=== PATIENT | female | born 2000 | race Two or more races ===

== ENCOUNTER 2023-03-29 10:46 | Emergency (ER) | payer OTHER ==
[~2023-03-29] VITALS: Ht 154.9 cm; Wt 46.3 kg
[2023-03-29] MEDS ORDERED: PRENATAL + DHA1 EAC1 PO (10:57)
[2023-03-29 12:07] LABS: HEMATOCRIT 36.6 % (36.0-45.00); HEMOGLOBIN 12.8 g/dL (12.0-15.00); MEAN CELL VOLUME 86.6 fL (80.00-100.00); MEAN CORPUSCULAR HEMOGLOBIN 30.2 pg (27.00-32.0); MEAN CORPUSCULAR HGB CONC 34.9 g/dl (32.0-36.0); PLATELET COUNT 347 K/uL (150-450); RED BLOOD COUNT 4.22 M/uL (4.00-6.00); RED CELL DISTRIBUTION WIDTH 13.2 % (11.5-14.5)
[2023-03-29 12:09] LABS: PH,URINE 5.5 (5.0-8.0); URINE APPEARANCE Clear; URINE BILIRRUBIN Negative (NEGATIVE); URINE BLOOD Moderate; URINE COLOR Yellow; URINE GLUCOSE Negative (NEGATIVE); URINE LEUKOCYTE Negative; URINE NITRATE Negative; URINE PROTEIN Negative (NEGATIVE)
[2023-03-29 12:13] LABS: URINE BACTERIA 374.1 uL (0.0-1933); URINE EPITHELIAL CELLS 10.8 uL (0.0-38.8); URINE RBC 2.2 uL (0.0-20.8); URINE WBC 10.8 uL (0.0-23.2)
[2023-03-29 12:44] LABS: CALCIUM 9.8 mg/dL (8.5-10.1); CREATININE SERUM 0.46 mg/dL (0.55-1.02); GFR 173.18; POTASSIUM 3.56 mEq/L (3.5-5.1)
== END 2023-03-29 15:51 | disposition home or self-care (01) ==
LOC: ER 10:47
PROVIDERS: General Practice
DX: O20.8 Other hemorrhage in early pregnancy (principal); Z3A.11 11 weeks gestation of pregnancy

== ENCOUNTER 2023-04-08 08:07 | Outpatient (CLI) | payer OTHER ==
[~2023-04-08 08:07] MED LIST: PRENATAL + DHA1 EAC1 PO
== END 2023-04-08 08:09 | disposition home or self-care (01) ==
LOC: PRENATAL 08:07
PROVIDERS: ATTEND Obstetrics & Gynecology Maternal & Fetal Medicine
DX: O36.80X0 Pregnancy with inconclusive fetal viability, not applicable or unspecified (principal); Z36.82 Encounter for antenatal screening for nuchal translucency; Z36.9 Encounter for antenatal screening, unspecified; O99.891 Other specified diseases and conditions complicating pregnancy; Z3A.12 12 weeks gestation of pregnancy

== ENCOUNTER 2023-04-11 17:10 | Emergency (ER) | payer OTHER ==
[~2023-04-11] VITALS: Ht 154.9 cm; Wt 45.4 kg
[2023-04-11 19:58] LABS: HEMOGLOBIN 11.9 g/dL (12.0-15.00); MEAN CELL VOLUME 86.5 fL (80.00-100.00); MEAN CORPUSCULAR HEMOGLOBIN 30.2 pg (27.00-32.0); MEAN CORPUSCULAR HGB CONC 34.9 g/dl (32.0-36.0); PLATELET COUNT 266 K/uL (150-450); RED BLOOD COUNT 3.94 M/uL (4.00-6.00); RED CELL DISTRIBUTION WIDTH 13.7 % (11.5-14.5)
[2023-04-11 20:30] LABS: CALCIUM 9.6 mg/dL (8.5-10.1); CREATININE SERUM 0.54 mg/dL (0.55-1.02); GFR 143.93; POTASSIUM 3.33 mEq/L (3.5-5.1)
== END 2023-04-11 22:36 | disposition home or self-care (01) ==
LOC: ER 17:11
PROVIDERS: Emergency Medicine
DX: O98.511 Other viral diseases complicating pregnancy, first trimester (principal); B34.9 Viral infection, unspecified; Z3A.13 13 weeks gestation of pregnancy; Z20.822 Contact with and (suspected) exposure to COVID-19

== ENCOUNTER 2023-05-14 08:47 | Emergency (ER) | payer OTHER ==
[~2023-05-14] VITALS: Ht 154.9 cm; Wt 46.7 kg
[2023-05-14] MEDS ORDERED: 0.9 % SODIUM CHLORIDE 1,000 ML IV STA (10:04)
[2023-05-14] MEDS ORDERED: ONDANSETRON HCL 2 MG/ML VIAL IV ONE (10:15)
[2023-05-14] MEDS ORDERED: ACETAMINOPHEN 500 MG GEL..CAP PO ONE (10:30)
[2023-05-14 10:43] LABS: HEMATOCRIT 32.4 % (36.0-45.00); HEMOGLOBIN 11.6 g/dL (12.0-15.00); MEAN CELL VOLUME 88.7 fL (80.00-100.00); MEAN CORPUSCULAR HEMOGLOBIN 31.8 pg (27.00-32.0); MEAN CORPUSCULAR HGB CONC 35.8 g/dl (32.0-36.0); PLATELET COUNT 248 K/uL (150-450); RED BLOOD COUNT 3.65 M/uL (4.00-6.00); RED CELL DISTRIBUTION WIDTH 13.9 % (11.5-14.5)
[2023-05-14 11:25] LABS: CALCIUM 8.9 mg/dL (8.5-10.1); CREATININE SERUM 0.46 mg/dL (0.55-1.02); GFR 171.48; POTASSIUM 3.69 mEq/L (3.5-5.1)
[2023-05-14 12:25] LABS: PH,URINE 5.5 (5.0-8.0); URINE APPEARANCE Clear; URINE BILIRRUBIN Negative (NEGATIVE); URINE BLOOD Negative; URINE COLOR Yellow; URINE GLUCOSE Negative (NEGATIVE); URINE LEUKOCYTE Negative; URINE NITRATE Negative; URINE PROTEIN Negative (NEGATIVE)
[2023-05-14 12:29] LABS: URINE BACTERIA 1654.3 uL (0.0-1933); URINE EPITHELIAL CELLS 16.6 uL (0.0-38.8); URINE WBC 30.2 uL (0.0-23.2)
[2023-05-14 12:41] LABS: URINE RBC 1.7 uL (0.0-20.8)
== END 2023-05-14 14:34 | disposition home or self-care (01) ==
LOC: ER 08:47
PROVIDERS: General Practice
DX: O98.512 Other viral diseases complicating pregnancy, second trimester (principal); J10.1 Influenza due to other identified influenza virus with other respiratory manifestations; Z3A.17 17 weeks gestation of pregnancy; Z20.822 Contact with and (suspected) exposure to COVID-19

== ENCOUNTER → 2023-06-16 | Outpatient (CLI) | payer OTHER | END | disposition home or self-care (01) | LOC: PRENATAL 15:04 | PROVIDERS: ATTEND Obstetrics & Gynecology Maternal & Fetal Medicine | DX: O35.3XX0 Maternal care for (suspected) damage to fetus from viral disease in mother, not applicable or unspecified (principal); O44.00 Complete placenta previa NOS or without hemorrhage, unspecified trimester; O26.879 Cervical shortening, unspecified trimester; Z3A.22 22 weeks gestation of pregnancy ==

== ENCOUNTER 2023-06-25 08:01 | Outpatient (CLI) | payer OTHER | END 2023-06-25 08:02 | disposition home or self-care (01) | LOC: PRENATAL 08:01 | PROVIDERS: ATTEND Obstetrics & Gynecology Maternal & Fetal Medicine | DX: O26.879 Cervical shortening, unspecified trimester (principal); Z3A.23 23 weeks gestation of pregnancy ==

== ENCOUNTER 2023-07-14 11:34 | Outpatient (CLI) | payer OTHER | END 2023-07-14 11:36 | disposition home or self-care (01) | LOC: PRENATAL 11:34 | PROVIDERS: ATTEND Obstetrics & Gynecology Maternal & Fetal Medicine | DX: O26.849 Uterine size-date discrepancy, unspecified trimester (principal); Z3A.26 26 weeks gestation of pregnancy ==

== ENCOUNTER 2023-10-18 10:02 | Outpatient (CLI) | payer OTHER ==
[~2023-10-18 10:02] MED LIST changes: +DIALYVITE 800-1 EACH PO
[2023-10-18] MEDS ORDERED: RINGERS SOLUTION,LACTATED 1,000 ML IV SCH (10:15)
[2023-10-18 10:33] LABS: PH,URINE 7.5 (5.0-8.0); URINE APPEARANCE Clear; URINE BILIRRUBIN Negative (NEGATIVE); URINE BLOOD Negative; URINE COLOR Yellow; URINE GLUCOSE Negative (NEGATIVE); URINE KETONE Negative (NEGATIVE); URINE LEUKOCYTE Trace; URINE NITRATE Negative; URINE PROTEIN Negative (NEGATIVE); URINE UROBILINOGEN 0.2 E.U./dl
[2023-10-18 10:34] LABS: HEMATOCRIT 31.8 % (36.0-45.00); HEMOGLOBIN 11.5 g/dL (12.0-15.00); MEAN CELL VOLUME 90.2 fL (80.00-100.00); MEAN CORPUSCULAR HEMOGLOBIN 32.5 pg (27.00-32.0); PLATELET COUNT 286 K/uL (150-450); RED BLOOD COUNT 3.53 M/uL (4.00-6.00); RED CELL DISTRIBUTION WIDTH 13.7 % (11.5-14.5)
[2023-10-18 10:37] LABS: URINE BACTERIA 3153.6 uL (0.0-1933); URINE EPITHELIAL CELLS 31.9 uL (0.0-38.8); URINE RBC 2.5 uL (0.0-20.8); URINE WBC 55.1 uL (0.0-23.2)
[2023-10-18 10:59] LABS: URINE CAST 0.45 uL (0.0-1.40)
[2023-10-18 11:20] LABS: CALCIUM 8.8 mg/dL (8.5-10.1); CREATININE SERUM 0.35 mg/dL (0.55-1.02); GFR 235.06; POTASSIUM 3.14 mEq/L (3.5-5.1)
[2023-10-18 11:24] LABS: INR < 0.93; PARTIAL THROMBOPLASTIN TIME 28.4 SECONDS (22.0-34.0)
[2023-10-18 11:29] LABS: PROTHROMBIN TIME 9.7 SECONDS (9.0-11.5)
== END 2023-10-18 12:32 | disposition home or self-care (01) ==
LOC: OBS/DEL 10:02
PROVIDERS: Obstetrics & Gynecology; ATTEND Obstetrics & Gynecology
DX: O26.893 Other specified pregnancy related conditions, third trimester (principal); Z3A.39 39 weeks gestation of pregnancy

== ENCOUNTER 2023-10-19 02:32 | Inpatient (IN) | payer OTHER ==
[~2023-10-19] VITALS: Ht 154.9 cm; Wt 59.0 kg
[2023-10-19] MEDS ORDERED: AMPICILLIN SODIUM 2,000 MG VIAL IV ONE (02:45)
[2023-10-19] MEDS ORDERED: MORPHINE SULFATE 4 MG/ML VIAL IV ONE ×2 (02:45→06:30)
[2023-10-19] MEDS ORDERED: RINGERS SOLUTION,LACTATED 1,000 ML IV SCH (02:45)
[2023-10-19] MEDS ORDERED: AMPICILLIN SODIUM 1,000 MG VIAL IV SCH (08:00)
[2023-10-19] MEDS ORDERED: OXYTOCIN 500 ML IV SCH (09:30)
[2023-10-19] MEDS ORDERED: CHLORHEXIDINE GLUCONATE 120 ML BOTTLE TOP SCH (10:45)
[2023-10-19] MEDS ORDERED: ERYTHROMYCIN BASE 1 GM TUBE OP SCH (10:45)
[2023-10-19] MEDS ORDERED: IBUprofen 400 MG TABLET PO PRN (10:45)
[2023-10-19] MEDS ORDERED: OXYTOCIN 1,000 ML IV SCH (10:45)
[2023-10-19] MEDS ORDERED: OXYTOCIN 10 UNITS/ML VIAL IM STA (10:45)
[2023-10-19 11:47] LABS: ABG PH 7.428 (7.35-7.45); ABG PO2 37.6 mmHg (80-100); ABG pCO2 32.4 mmHg (35-45); BASE EXCESS -2.4 mmol/l; BICARBONATE 20.9 mmol/l (23-25); SaO2 72.8 %; Tco2 21.9 mmol/l
[2023-10-19 11:48] LABS: o2 21 %
[2023-10-19 15:34] LABS: HEMATOCRIT 34.1 % (36.0-45.00); HEMOGLOBIN 11.8 g/dL (12.0-15.00); MEAN CELL VOLUME 93.3 fL (80.00-100.00); MEAN CORPUSCULAR HEMOGLOBIN 32.4 pg (27.00-32.0); MEAN CORPUSCULAR HGB CONC 34.7 g/dl (32.0-36.0); PLATELET COUNT 310 K/uL (150-450); RED BLOOD COUNT 3.66 M/uL (4.00-6.00); RED CELL DISTRIBUTION WIDTH 13.6 % (11.5-14.5)
== END 2023-10-21 10:56 | DRG 807 ==
LOC: OB/GYN 02:32 → LDR 02:32 → OB/GYN 10:34
PROVIDERS: Obstetrics & Gynecology; ADMIT Obstetrics & Gynecology; ATTEND Obstetrics & Gynecology
PROC: 10E0XZZ Delivery of Products of Conception, External Approach (ICD-10-PCS; principal; 2023-10-19)
PROC: 0UQMXZZ Repair Vulva, External Approach (ICD-10-PCS; 2023-10-19)
PROC: 4A1HXCZ Monitoring of Products of Conception, Cardiac Rate, External Approach (ICD-10-PCS; 2023-10-19)
DX: O71.82 Other specified trauma to perineum and vulva (principal); O99.824 Streptococcus B carrier state complicating childbirth; Z37.0 Single live birth; Z3A.39 39 weeks gestation of pregnancy; Z20.822 Contact with and (suspected) exposure to COVID-19

== ENCOUNTER 2023-11-21 18:05 | Emergency (ER) | payer OTHER ==
[~2023-11-21] VITALS: Ht 154.9 cm; Wt 59.0 kg
== END 2023-11-21 21:44 | disposition home or self-care (01) ==
LOC: ER 18:05
DX: U07.1 COVID-19 (principal)